=== PATIENT | male | born 1975 | race Caucasian/White ===

== ENCOUNTER → 2016-12-25 | Outpatient (CLI) | payer OTHER | END | disposition home or self-care (01) | LOC: C.RDSM 13:20 | PROVIDERS: ATTEND Orthopaedic Surgery | DX: M25.561 Pain in right knee (principal); M25.562 Pain in left knee ==

== ENCOUNTER → 2017-02-08 | Day surgery (SDC) | payer OTHER ==
[2017-02-04 10:41] VITALS: Ht 170.2 cm; Wt 97.6 kg
[~2017-02-08] VITALS: Ht 170.2 cm; Wt 97.6 kg
[~2017-02-08] MED LIST: ATROPINE SULFATE 0.1 MG/ML 5ML SYR IV PRN; CEFAZOLIN 2000MG IV PUSH 10 ML IV SCH; DEXAMETHASONE SOD INJ 4 MG/ML VIAL ONE; DIPH-384 PO; ESCI1TAB10 PO; EpHEDrine SULFATE 50MG/5ML SYR ONE; EpHEDrine SULFATE INJ 50 MG/ML AMP IV PRN; EpHEDrine SULFATE INJ 50 MG/ML AMP ONE; EpINEphrine HCL INJ 1 MG/ML 5ML SYRINGE ONE; FENTANYL CITRATE INJ 50 MCG/1 ML 2 ML VIAL IV PRN; FENTANYL CITRATE INJ 50 MCG/1 ML 2 ML VIAL ONE; GLYCOPYRROLATE INJ 0.2 MG/ML VIAL ONE; HYDROmorphone INJ 0.5 MG/0.5 ML SYR IV PRN; IBUP-1449 PO; KETOROLAC TROMETHAMINE 30 MG/ML VIAL ONE; LACTATED RINGER'S 1000ML 1,000 ML IV SCH; LIDO 2%/EPINEPHRINE 1:100000 20 ML VIAL INFIL ONE; LIDOCAINE HCL 2% 2 ML VIAL (20MG/ML) ONE; MIDAZOLAM HCL 1 MG/ML 2ML VIAL ONE; OLAN10TA11 PO; ONDANSETRON INJ 2 MG/ML 2 ML VIAL IV PRN; ONDANSETRON INJ 2 MG/ML 2 ML VIAL ONE; OXYCODONE/ACETAMINOPHEN 5-325 TAB PO PRN; PROMETHAZINE HCL INJ 12.5 MG in SODIUM CHLORIDE 0.9% 50ML 50 ML IV PRN; PROPOFOL IV EMULSION 10 MG/ML 20 ML VIAL IV ONE; ROPIVACAINE 0.5% 5 MG/ML 30 ML VIAL ONE; SODIUM CHLORIDE 0.9% 1000ML 1,000 ML IV SCH
--- NOTE | 2017-02-08 08:58 | History & Physical Bridge - [place] ---
H&P Re-Evaluation Bridge Note: I have examined the patient, reviewed the History & Physical and in the interval since the performance of the History & Physical I have noted the following changes of clinical significance: No changes noted
--- NOTE | 2017-02-08 11:29 | [facility] Post Operative Brief Note ---
Immediate Operative Summary Operative Date Feb 08, 2017. Pre-Operative Diagnosis Left knee medial meniscus tear Post-Operative Diagnosis Same as preop Procedure(s) Performed Left Knee Arthroscopy, Partial Medial Meniscectomy Surgeon Dr. Espinoza Drug Safety Data Management Specialist Surgeon(s) Gosia Moore MD and Aimee East PA-C Estimated Blood Loss Minimal Findings Bucket handle medial meniscus tear with complex tearing of posterior horn. Meniscus debrided to a stable margin. Fluids (cc crystalloids) 800cc Specimens None Drains None Anesthesia General with local Complication(s) None Disposition Recovery Room / PACU
--- NOTE | 2017-02-08 11:44 | [facility] Operative Report ---
Operative Report Operative Date Feb 08, 2017. Pre-Operative Diagnosis Left knee medial meniscus tear Post-Operative Diagnosis Same as preop Procedure(s) Performed Left Knee Arthroscopy, Partial Medial Meniscectomy Surgeon Dr. Espinoza Monologist Surgeon(s) Gosia Moore MD and Aimee East PA-C Estimated Blood Loss Minimal Findings none Fluids (cc crystalloids) 800cc Specimens None Complication(s) None Disposition Recovery Room / PACU I attest to the content of the Intraoperative Record and any orders documented therein. Any exceptions are noted below.
--- NOTE | 2017-02-08 11:48 | Discharge Instructions ---
Discharge Instructions Date of Service Feb 08, 2017. Admission Reason for Admission: Left Knee Medial Meniscus Tear Discharge Discharge Diagnosis / Problem: left knee medial meniscus tear Discharge Goals Goal(s): Decrease discomfort, Improve function, Increase independence Activity Recommendations Activity Limitations: as noted below Lifting Limitations: none Exercise/Sports Limitations: until after follow-up appointment May Resume Sexual Activity: when tolerated Shower/Bathe: tomorrow, keep incision dry Driving or Machine Use: None until after follow up Weightbearing Status: Left weightbearing (as tolerated with aid of crutches) . Instructions / Follow-Up Instructions / Follow-Up Post-operative Instructions Dear Patient and Family/Friends, Before you are discharged from the hospital, it is important to know what to expect when you get home after surgery. To that end, we have created this sheet of discharge instructions which covers many commonly asked questions. Make sure you go through this sheet in its entirety with your nurse before you are discharged. Please note that we will go over the specifics of your surgery and recovery when you return for your first post-operative visit. Sincerely, Dr. Espinoza Pain Expect to be in a fair amount of pain after surgery. Remember, our goal is not to eliminate your pain, but to make it tolerable. It is a good idea to stay ahead of your pain by taking the medications you were prescribed once you get home. Typically, the pain starts improving 3-7 days after surgery. You should start weaning off the narcotic pain medication (oxycodone, hydrocodone, hydromorphone, morphine) as soon as your pain improves. Please call our office if your pain is not adequately controlled. Ice Ice your operative site at least 5 times a day for 15-30 minutes at a time. Make sure you have a thin cloth between the ice or cooling unit and your skin to prevent soni bite. This is especially important if you received a nerve block. Continue icing your operative site for the first 5-7 days after surgery , then as needed. Diet/Nausea/Vomiting Start by drinking clear liquids and eating crackers. If you can tolerate this, then you may resume your normal diet. If you feel nauseated or vomit, take Zofran/ondansetron (if prescribed). Please call our office if you have intractable nausea or vomiting, or, if after hours, you may go to the Emergency Room for help. Constipation Constipation is a common side effect of narcotic pain medication. If you have not had a bowel movement within 2 days after surgery, we recommend purchasing an over the counter laxative such as Milk of Magnesia, Dulcolax, or Miralax from a local pharmacy, and taking it as instructed. Call our clinic if any questions. Slings and Braces If you were placed in a sling or brace, it must be worn at all times, including sleep. You may remove your sling or brace for physical therapy, home exercises , and showering. The length of time you will be in your brace and range of motion restrictions depends on what surgery you had; these details will be reviewed at your first post-operative appointment. Nerve block The anesthesia team sometimes places a nerve block to help with post-operative pain control. This results in significant numbness and inability to move the extremity. The nerve block usually wears off in 8-12 hours, but sometimes can last up to 24 hours. Please call our office if you are still unable to move your extremity after 24 hours, unless you received a pain pump to take home. Nerve blocks typically wear off quickly, so start taking pain medication as soon as you start feeling soreness near your surgical site. Weight bearing and Range of Motion. Do not bear any weight through your operative extremity immediately after surgery. If you had upper extremity surgery, do not lift anything with that arm. If you are in a knee brace, keep it locked in place until your follow-up. We will discuss your weight bearing, range of motion, and lifting restrictions in detail at your first post-operative appointment. Continuous Passive Motion (CPM) Machine If you were prescribed a CPM machine, it will start after your first post- operative appointment, at which time we will give you instructions on the range of motion settings and duration of treatment Physical therapy You will be given a prescription for physical therapy or occupational therapy at your first post-operative appointment. Typically, patients start therapy within 1 week of surgery Wound care and showering We will inspect your wound at your first post-operative visit, and may do a dressing change at that time. Most patients will be in a water-proof dressing that is removed 14 days after surgery. It is normal to see some dried blood on the dressing. Do not remove your dressing, paper strips or sutures yourself unless you are given permission. Showering is allowed the day after surgery. Do not scrub or remove any dressings. The wound should not be submerged underwater (i.e. in a bathtub or pool) until 4 weeks after surgery ALVARADO stockings If you were given white stockings, these are to be worn at all times except to shower (on both legs) for the first 2 weeks after surgery. Driving You may not drive while taking narcotic pain medication or while in a cast, splint, sling or brace. You, the patient, need to make the final determination about when you are safe to drive, however, the earliest you may consider driving after surgery is below: Hand/Wrist/Elbow Surgery: 3 days Shoulder Surgery: 2 weeks Hip,/Knee/Ankle Surgery: 4 weeks Fracture repair: 6 weeks Return to Work Your return to work depends on what surgery was done and what type of work you do. Please bring any paperwork your employer needs completed to your first post -operative visit. Also, bring a description of your job duties, as this helps us to understand what risks you may face at work. Travel Avoid long distance travel (greater than 1 hour) in airplanes and cars for the first 6 weeks after surgery. If you must travel, you need to have a Doppler ultrasound done before you travel to rule out a blood clot in your legs. Follow-up You should have a follow-up appointment already scheduled 1-2 days after surgery. If not, please contact our office to make this appointment before you leave the hospital. When to call the office It is normal to have swelling and bruising in the limb that was operated on. This will improve with time. It is also normal to have fevers for the first 2 days after surgery. Reasons you should call your doctor include: Uncontrolled pain; Nausea, vomiting, or constipation that does not improve with medication; Fevers over 101.5, chills, sweats; Drainage or bleeding from the wound; Foul odor; Spreading areas of redness; Any other concerns Current Hospital Diet Patient's current hospital diet: Discharge Diet Recommended Diet: Regular Diet Procedures Procedures Performed: Left Knee Arthroscopy, Partial Medial Meniscectomy Pending Studies Studies pending at discharge: no Medical Emergencies . Who to Call and When: Medical Emergencies: If at any time you feel your situation is an emergency, please call 911 immediately. . Non-Emergent Contact Non-Emergency issues call your: Primary Care Provider Call Non-Emergent contact if: you have a fever, temperature is above 101.5, your pain is not controlled, your pain is worsening, wound has increased drainage, you have any medication questions . "Provider Documentation" section prepared by Bryan East. . VTE Core Measure Inpt VTE Proph given/why not?: Other Anticoagulation (Aspirin EC 81 mg), T.E.D. Stockings [place] Drug Monitoring Program Search Results: patient reviewed within database, no issues identified, see additional documentation
--- NOTE | 2017-02-08 12:11 | OPERATIVE REPORT ---
DATE OF OPERATION: 02/08/2017 PREOPERATIVE DIAGNOSES: Left knee medial meniscus tear and anterior cruciate ligament insufficiency. POSTOPERATIVE DIAGNOSES: Same. OPERATION PERFORMED: Left knee arthroscopy and partial medial meniscectomy. SURGEON: Marco Espinoza MD TRUCK TERMINAL MANAGER: Arturo Moore MD and Bryan East PA-C ESTIMATED BLOOD LOSS: Minimal. IV FLUIDS: 800 mL of crystalloids. SPECIMENS: None. COMPLICATIONS: None. IMPLANTS: None. INDICATIONS: Mr. Conrad is a 41-year-old inmate who has had medial-sided knee pain and buckling for several months. MRI was obtained, which demonstrates ACL tear as well as a medial meniscus tear. He says he does not really struggle with instability of his knee. It is more medial-sided knee pain. Therefore, I had a discussion with him about performing a partial medial meniscectomy as he has failed nonsurgical treatment. After reviewing all the risks and benefits of surgery, he elected to proceed. All questions were answered. Informed consent was signed. OPERATIVE FINDINGS: 1. The undersurface of the patella was normal. 2. The trochlea was normal. 3. The medial and lateral gutters were free of any loose bodies. 4. The medial compartment showed a bucket handle meniscus tear at the white-white junction as well as complex tearing of the posterior horn. There was grade 1 softening of the medial femoral condyle and the medial tibial plateau. 5. The notch showed the PCL to be intact. The ACL was torn off of the lateral wall and was scarred to the PCL. 6. The lateral compartment showed some central fraying of the body of the anterior horn of the lateral meniscus and grade 1 softening of the lateral tibial plateau and the lateral femoral condyle. 7. The medial meniscus was trimmed back to a stable margin. DESCRIPTION OF THE OPERATION: The patient was identified in the preoperative holding area, where surgical site was marked. He was brought back to main operating room, where he was placed on the operating room table and general anesthesia was administered. All bony prominences were padded. Perioperative antibiotics were administered. He was prepped and draped in the normal sterile fashion. Prior to incision, a multidisciplinary timeout was called. All in the room were in agreement. We began by injecting his portal sites with lidocaine with epinephrine. A total of 6 mL were used. We then created an anterior lateral portal. A medial working portal was created under direct visualization. We then performed a diagnostic arthroscopy, revealing the above findings. Once a diagnostic arthroscopy was complete, we then introduced the probe to fully explore his medial meniscus tear. This was clearly an unrepairable pattern. We therefore used a narrow biter through the notch to release the bucket handle tear from the intact meniscus at the root. Once this was free, we then used an angled biter to dissect through the anterior portion of the bucket handle tear. The meniscus was then grasped with a grasper and pulled out through the medial portal without difficulty. The meniscus was then reexplored and there was a horizontal split in the posterior horn, extending towards the root and ending at the mid body. This was trimmed out with meniscal biters back to a stable margin. A curved shaver was used to remove any loose fragments and smoothen out the edges. We were very happy with the final result. Next, the remainder of the arthroscopy was complete and we did use the shaver to irrigate out the knee to ensure that any meniscus fragments had been removed. Cautery was used to achieve hemostasis. The arthroscope was then removed from the knee. The portals were closed with inverted 3-0 Monocryl sutures. Steri-Strips were applied. 30 mL of Naropin without epinephrine was injected into the portal sites into the knee for postoperative pain control. 2 x 2 and Tegaderm were placed for dressings followed by sterile soft roll, German wrap and a ALVARADO hose. No brace was applied. The patient was awoke from anesthesia and transferred to recovery room in stable condition. POSTOPERATIVE COURSE: The patient will be discharged back to his facility today. He will be weightbearing as tolerated with crutches as needed for the next 3-4 days. He will do immediate range of motion. He will follow up for suture removal. He will be working with physical therapy through his facility starting immediately after surgery. I attest to the content of the Intraoperative Record and any orders documented therein. Any exception s are noted below.
[2017-02-08 12:24] VITALS: TEMP 36.2
[2017-02-08 12:50] VITALS: BP 135/83; PULSE 48; O2SAT 98
--- NOTE | 2017-02-08 13:09 | Anesthesia Progress Nt - [facility] ---
Anesthesia Post Op Note Date & Time Feb 08, 2017 at 13:09 Vital Signs Pain Intensity: 7.0 Vital Signs Past 12 Hours Date Time Temp Pulse Resp B/P (MAP) Pulse Ox O2 Delivery O2 Flow Rate FiO2 02/08/17 12:50 48 20 135/83 (100) 98 Room Air 02/08/17 12:24 36.2 54 20 130/79 (96) 96 02/08/17 12:16 134/85 02/08/17 12:14 56 10 97 02/08/17 12:14 36.5 52 12 138/92 96 Room Air 02/08/17 12:14 54 10 02/08/17 12:13 59 13 99 02/08/17 12:13 59 13 02/08/17 12:12 138/92 02/08/17 12:08 67 18 02/08/17 12:08 69 18 96 02/08/17 12:07 150/55 02/08/17 12:03 67 21 02/08/17 12:03 69 21 97 02/08/17 12:01 131/68 02/08/17 11:58 71 15 97 02/08/17 11:58 65 15 02/08/17 11:56 137/88 02/08/17 11:53 67 15 02/08/17 11:53 66 15 100 02/08/17 11:52 122/58 02/08/17 11:48 77 14 02/08/17 11:48 14 02/08/17 11:46 126/72 02/08/17 11:44 134/75 02/08/17 11:43 36.6 56 16 134/75 98 Diffusion Mask 6 02/08/17 08:58 36.8 49 18 132/85 (101) 96 Room Air Notes Mental Status: alert / awake / arousable, participated in evaluation Pt Amnestic to Procedure: Yes Nausea / Vomiting: adequately controlled Pain: adequately controlled Airway Patency, RR, SpO2: stable & adequate BP & HR: stable & adequate Hydration State: stable & adequate Anesthetic Complications: no major complications apparent
== END | disposition home or self-care (01) ==
LOC: X.SURG 08:49
PROVIDERS: ATTEND Orthopaedic Surgery
DX: S83.242A Other tear of medial meniscus, current injury, left knee, initial encounter (principal); S83.512A Sprain of anterior cruciate ligament of left knee, initial encounter; X58.XXXA Exposure to other specified factors, initial encounter